=== PATIENT | female | born 1965 | race Caucasian/White ===

== ENCOUNTER 2017-02-26 09:07 | Day surgery (SDC) | payer BC ==
[2017-02-26] MEDS ORDERED: Lactated Ringers 1,000 ML IV SCH (10:00)
[2017-02-26] MEDS ORDERED: Scopolamine 1.5 MG Transdermal Patch TOP ONE (10:02)
[2017-02-26] MEDS ORDERED: Aloe Vera/Sodium Chloride Gel 14.1 GM Tube ONE (10:35)
[2017-02-26] MEDS ORDERED: EPINEPHrine 1:1000 1 MG/ML SDV ONE (10:36)
[2017-02-26] MEDS ORDERED: Lidocaine 2% 5 ML SDV ONE ×2 (10:36→11:32)
[2017-02-26] MEDS ORDERED: Oxymetazoline 0.05% Nasal Spray 15 ML Bottle ONE (10:37)
[2017-02-26] MEDS ORDERED: Lidocaine 2% with EPINEPHrine 1:100,000 20 ML MDV ONE (10:37)
[2017-02-26] MEDS ORDERED: Thrombin (Bovine) 5,000 Unit Kit ONE (10:37)
--- NOTE | 2017-02-26 11:12 | PCM.PREANE ---
Preanesthetic Assessment - Anesthesia/Transfusion/Family Hx Anesthesia History: Prior Anesthesia Without Reaction (slow wakeup in prior surgeries) Other Type of Anesthesia Reaction Comment: pt states she has problems with nausea post anesthesia Family History of Anesthesia Reaction: No Transfusion History: No Prior Transfusion(s) - Review of Systems General: No Symptoms Pulmonary: No Symptoms Cardiovascular: No Symptoms Gastrointestinal: Other (uses antacid for GERD) Neurological: Headache (sinus vs. migraine like) Other: Reports: Sinus Problem (see HPI/surgical plan) - Physical Assessment O2 Sat by Pulse Oximetry: 96 Respiratory Rate: 16 Vital Signs: Last Vital Signs Temp 97.5 F 02/26/17 09:30 Pulse 61 02/26/17 09:30 Resp 16 02/26/17 09:30 BP 127/82 02/26/17 09:30 Pulse Ox 96 02/26/17 09:30 Height: 5 ft 4 in Weight: 224 lb ASA Class: 2 Mental Status: Alert & Oriented x3 Airway Class: Mallampati = 1 Dentition: Reports: Dentures (upper ) Thyro-Mental Finger Breadths: 3 Mouth Opening Finger Breadths: 3 ROM/Head Extension: Full Lungs: Clear to auscultation, Normal respiratory effort Cardiovascular: Regular Rate, Regular Rhythm - Allergies Allergies/Adverse Reactions: Allergies Allergy/AdvReac Type Severity Reaction Status Date / Time amoxicillin trihydrate Allergy Headache Verified 12/27/15 14:38 [From Augmentin] codeine Allergy Headache Verified 12/27/15 14:38 potassium clavulanate Allergy Headache Verified 12/27/15 14:38 [From Augmentin] - Blood Blood Available: No Product(s) Available: None - Anesthesia Plan Free Text/Narrative:: present with interview and exam. 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: Reports: Musculoskeletal History: Reports: Other (see below) Other Musculoskeletal History: chronic neck pain Neurological History: Reports: Migraines Psychiatric History: Reports: Anxiety Endocrine/Metabolic History: Reports: Obesity/BMI 30+ - Infectious Disease History Infectious Disease History: Reports: Chicken pox Other Infectious Disease History: childhood - Past Surgical History Head Surgeries/Procedures: Reports: None HEENT Surgical History: Reports: Adenoidectomy, Naso-sinus surgery, Tonsillectomy GI Surgical History: Reports: Appendectomy Female Surgical History: Reports: section, D&C, Hysterectomy, Tubal ligation Other Female Surgeries/Procedures: D&C x3, c/section x2, breast reduction, tubal ligation, hysterectomy with appy Dermatological Surgical History: Reports: Skin graft - SUBSTANCE USE Smoking Status *Q: Never Smoker Second Hand Smoke Exposure: No Recreational Drug Use History: No - HOME MEDS Home Medications: Home Meds Escitalopram [Lexapro] 10 mg PO DAILY 12/27/15 [History] Gabapentin [Neurontin] 600 mg PO BEDTIME 12/27/15 [History] Pantoprazole Sodium [Protonix] 40 mg PO DAILY 12/27/15 [History] Rizatriptan [Maxalt] 10 mg PO ASDIRECTED PRN 12/27/15 [History] Cetirizine HCl [Zyrtec] 10 mg PO DAILY 02/24/17 [History] Diclofenac Sodium [Voltaren] 50 mg PO TID PRN 02/24/17 [History] - CURRENT (IN HOUSE) MEDS Current Meds: Current Medications Lactated Ringer's (Ringers, Lactated) 1,000 mls @ 100 mls/hr IV ASDIRECTED [place] Last Admin: 02/26/17 09:30 Dose: 100 mls/hr Discontinued Medications Epinephrine HCl (Adrenalin 1:1000) Confirm Administered Dose 3 mg .ROUTE .STK- MED ONE Stop: 02/26/17 10:37 Lidocaine (Xylocaine-Mpf 2%) Confirm Administered Dose 10 ml .ROUTE .STK-MED ONE Stop: 02/26/17 10:37 Lidocaine HCl (Xylocaine-Mpf 1%) Confirm Administered Dose 10 ml .ROUTE .STK- MED ONE Stop: 02/26/17 10:37 Lidocaine/Epinephrine (Xylocaine 2% With Epinephrine 1:100,000) Confirm Administered Dose 20 ml .ROUTE .STK-MED ONE Stop: 02/26/17 10:38 Oxymetazoline HCl (Afrin Original 0.05% Nasal Temperance) Confirm Administered Dose 30 ml .ROUTE .STK-MED ONE Stop: 02/26/17 10:38 Scopolamine (Transderm-Scop) 1.5 mg TOP ONETIME ONE Stop: 02/26/17 10:03 Last Admin: 02/26/17 10:33 Dose: 1.5 mg Sodium Chloride (Sarita Saline Nasal Gel) Confirm Administered Dose 14.1 gm .ROUTE .STK-MED ONE Stop: 02/26/17 10:36 Thrombin (Thrombin-Jmi) Confirm Administered Dose 5,000 unit .ROUTE .STK-MED ONE Stop: 02/26/17 10:38 Preanesthetic Assessment - ANESTHESIA/TRANSFUSION/FAMILY HX Other Type of Anesthesia Reaction Comment: pt states she has problems with nausea post anesthesia Family History of Anesthesia Reaction: No - PHYSICAL ASSESSMENT O2 Sat by Pulse Oximetry: 96 RR: 16 Vital Signs: Last Vital Signs Temp 97.5 F 02/26/17 09:30 Pulse 61 02/26/17 09:30 Resp 16 02/26/17 09:30 BP 127/82 02/26/17 09:30 Pulse Ox 96 02/26/17 09:30 Height: 5 ft 4 in Weight: 224 lb - ALLERGIES Allergies/Adverse Reactions: Allergies Allergy/AdvReac Type Severity Reaction Status Date / Time amoxicillin trihydrate Allergy Headache Verified 12/27/15 14:38 [From Augmentin] codeine Allergy Headache Verified 12/27/15 14:38 potassium clavulanate Allergy Headache Verified 12/27/15 14:38 [From Augmentin]
[2017-02-26] MEDS ORDERED: fentaNYL 100 MCG/2 ML SDV ONE (11:28)
[2017-02-26] MEDS ORDERED: Propofol 200 MG/20 ML SDV ONE ×2 (11:28→13:18)
[2017-02-26] MEDS ORDERED: Midazolam 1 MG/ML 2 ML SDV ONE (11:29)
--- NOTE | 2017-02-26 11:30 | PCM.HPR ---
H & P Addendum review - H & P Addendum Review Date of Original H & P: 01/30/17 Date Reviewed: 02/26/17 Time Reviewed: 11:45 Patient was examined: No Changes
[2017-02-26] MEDS ORDERED: Dexamethasone 4 MG/ML 5 ML MDV ONE ×2 (11:32→13:50)
[2017-02-26] MEDS ORDERED: Rocuronium 10 MG/ML 10 ML Syringe ONE (11:32)
[2017-02-26] MEDS ORDERED: diphenhydrAMINE 50 MG/ML SDV ONE (11:32)
[2017-02-26] MEDS ORDERED: Neostigmine Methylsulfate 1 MG/ML 5 ML Syringe ONE (11:32)
[2017-02-26] MEDS ORDERED: Ondansetron 4 MG/2 ML SDV ONE (11:32)
[2017-02-26] MEDS ORDERED: Remifentanil 1 MG Vial ONE (11:33)
[2017-02-26] MEDS ORDERED: Mineral Oil/Petrolatum Ophth Oint 3.5 GM Tube ONE (11:36)
[2017-02-26] MEDS ORDERED: fentaNYL 100 MCG/2 ML SDV IVPUSH PRN (12:57)
[2017-02-26] MEDS ORDERED: Betamethasone Acetate/Betamethasone Sod Phosphate 30 MG/5 ML MDV ONE (13:50)
[2017-02-26] MEDS ORDERED: Dexamethasone/Tobramycin 0.1-0.3% Ophth Oint 3.5 GM Tube ONE (13:50)
--- NOTE | 2017-02-26 15:58 | PCM.POSTAN ---
POST ANESTHESIA ASSESSMENT - MENTAL STATUS Mental Status: alert, oriented - VITAL SIGNS Pulse Rate: 94 SaO2: 99 Resp Rate: 14 Blood Pressure: 136/68 - RESPIRATORY Respiratory Status: respiratory rate WNL, airway patent, O2 saturation stable, supplemental oxygen (humidified face tent) - CARDIOVASCULAR CV Status: pulse rate WNL, blood pressure stable - GASTROINTESTINAL GI Status: no symptoms - PAIN Pain Score: 0 - POST OP HYDRATION Hydration Status: adequate & stable - OBSERVATIONS Free Text/Narrative:: Dry nose bandage and comfortable.
[2017-02-26] MEDS ORDERED: Acetaminophen 325 MG Tab PO PRN (16:18)
[2017-02-26] MEDS ORDERED: Ibuprofen 400 MG Tab PO PRN (16:19)
--- NOTE | 2017-02-26 17:27 | PCM.OPNOTE ---
- General Post-Op/Procedure Note Date of Surgery/Procedure: 02/26/17 Condition: Good Free Text/Narrative:: Intake & Output 02/26/17 02/26/17 02/26/17 06:59 14:59 22:59 Intake Total 1800 Balance 1800 Pre operative diagnosis: Nasal obstruction, recurrent acute on chronic sinusitis , deviated nasal septum, ahsan inferior turbinate hypertrophy, ahsan maxillary and ethmoid sinusitis. Post operative diagnosis: As above + bilateral nasal adhesions Procedure: Coblation reducion of bilateral inferior turbinates [ CPT 04910 (50)] , Nasal septoplasty [ 89133 ], division of adhesions between middle turbinate and lateral nasal wall bilateral [, Bilateral Revision Endoscopic sinus surgery - middle meatal antrotomy [ CPT 61789 (50)], uncinectomy, Sinus Navigation [ 43954] Surgeon: Laney Chance MD Anesthesia: GA Anesthesiologist: Dr Morrow Date of procedure: 02/26/2017 Indications: Dorothy was seen in my clinic with above symptoms. A CT scan of the paranasal sinuses showed bilateral maxillary sinus disease with very patchy opacification ethmoid sinuses bilaterally with deviated nasal septum. Remaining anatomy seemed fairly normal. An informed consent was obtained and risks and benefits of surgery were discussed in detail and she was listed for the procedure. Findings: Right - anterior deviated nasal septum; left mid- high deviated nasal septum in the region of middle turbinate; left sided spur along the floor. Adhesions between bilateral middle turbinate and lateral nasal wall-very dense and osseous on the left side; mucosal on the right side. Bilateral maxillary sinus ostia severely stenosed - 2 pinpoint openings on the left, approximately 2 -3 mm openings X 2 on the right with intervening scar tissue. Residual uncinate process- almost complete on the right side and 2/3 on the left side. These changes are likely from previous surgery. The adhesions were divided, uncinectomy was performed and bilateral revision middle meatal antrostomy was performed. Operation details: An informed consent was obtained. A time out was performed and the patient was brought back to the operating room. Gen. anesthesia was administered with an endotracheal tube. Bilateral eyes were left exposed and lubricating ointment was inserted into the eyes. A 0 degree rigid nasal endoscope was used to examine bilateral nasal cavities and photo documentation was obtained. The left inferior turbinate was addressed first. 1% lidocaine was injected into the inferior turbinate - 3 mls were used. The nasal cavity was packed with Afrin soaked pledget. After adequte period of decongestion the pledget was removed. A reflex 45 coblation wand with tip dipped in AYR Gel was used at setting of 6 :2 for Coblation and coagulation respectively. The point of entry was coagulated and wand was inserted till the third marking. Three way were created in the single channel. The inferior turbinate was visibly shrunk. Similar procedure was repeated on the right side - 3ml of lidocaine was used; there was visible reduction in size of turbinate subsequent to coblation. Bilateral nasal cavities were then packed with oxymetazoline 0.05% soaked cottonoid pledgets. After an appropriate period of decongestion the pledgets were removed. Nasal septum was infiltrated with 2% lidocaine 1: 100, 000 epinephrine in a standard fashion-a total of 6 mls was used. The pledgets were then removed. A right [place] incision was performed. A right sided mucoperichondrial flap was elevated-dissection was commenced with 2 mm osteotome and further carried out with combination of felicita and [place] elevators. Posteriorly the flap was continued as a muco periosteal flap. A posterior chondrotomy was performed. left-sided mucoperiosteal flap was elevated. Floor of the septal cartilage was dissected off the maxillary crest elevating thin strip of mucoperichondrial flap inferiorly on the contralateral- left side. A samson scissor was used and the perpendicular plate of the ethmoid was removed. The vomer along with left-sided spur was also removed. There was a small tear on the left side posteriorly. The thin inferior strip of cartilage was removed using a septal knife. Also approximately 2 mm thin posterior vertical strip of cartilage was removed. Subsequent to this the nasal septum was positioned towards the midline. Flap was intact on the right side. Flap incision was sutured with 4-0 plain gut. Mattress sutures were also performed. The [employer] navigation system was set up and the Tracker was fixed to the fore head as per protocol and successful registration was obtained. The left middle turbinate axilla, the head of middle turbinate and adhesions were infiltrated with 2% lidocaine and 1 in 100,000 epinephrine-a total of 1.5 ml was used. Similar injections were performed on the right side. A cottonoid pledget soaked in 1: 1000 epinephrine each was placed in the middle meatus, draping over the middle turbinate axilla - this was done bilaterally. The left side was addressed first. After appropriate period of decongestion the cottonoid pledgets were removed. A 0 endoscope was used and the adhesions between MT and lateral wall were divided with a FESS scissor - these were very dense and osseous and hence a very thin lateral aspect of the middle turbinate was dissected off leaving it attached to the lateral wall. A microdebrider was then used to gently shave off the residual part of the middle turbinate from the lateral wall. Subsequent to this the residual part of uncinate process was removed using a microdebrider up to the agger nasi cell. A 30 nasal endoscope was then used and 2 pinpoint openings were identified in the region of natural ostia of maxillary sinus - further defined with a navigated probe and 90 suction. With a combination Lars-Cut forceps and backbiting forceps these 2 opening combined and further enlarged using the microdebrider. The maxillary sinus cavity was inspected and irrigated with saline. Attention was then directed towards the right side. A 0 endoscope was used the cottonoid pledgets were removed. The adhesions were resected with a sickle knife - mucosal on this side. The uncinate process was identified - almost entirely intact except for a small posterior part. This was medialized with the help of a probe. Further dissection was carried out with a microdebrider up to agger nasi cell superiorly and back to the posterior inferior attachment. A 30 nasal endoscope was then used and the 2 maxillary sinus openings were identified. These were further defined with the help of all irrigated probed and 90 suction. With a combination of straight through cut forceps, backbiting forceps these 2 openings were combined and then further enlarged using the microdebrider. The maxillary sinus cavity was inspected and irrigated with saline. A medialization suture with 4.0 plain gut was performed securing the middle turbinate with the nasal septum. The nasal cavity was thoroughly inspected, irrigated and no loose bone chips were identified. At all times the position of instruments was confirmed with [employer] navigation and a combination of straight, 90 and 70 degrees suctions and ostium seekers - all navigated were used as required at appropriate times to assist with identifying landmarks and dissection. Post nasal space was suctioned clear of blood bilaterally and per orally. [place] dressing was inserted bilaterally inthe middle meatus and moistened with Betamethasone solution - 1.5 mls on each side. Bacitracin ointment was applied to the inferior turbinates bilaterally. A nasal bollster was applied. This conscluded the procedure and the patient was turned over to the anesthesiologist for recovery. Specimens: none IV fluids: 1500 ml Blood loss: 15 ml Blood products: nil Disposition: PACU for recovery Follow up: In 2 days.
--- NOTE | 2017-02-26 17:50 | PCM48HPAN ---
Post Anesthesia Note - EVALUATION WITHIN 48HRS OF ANESTHETIC Vital Signs in Normal Range: Yes Patient Participated in Evaluation: Yes Respiratory Function Stable: Yes Airway Patent: Yes Cardiovascular Function Stable: Yes Hydration Status Stable: Yes Pain Control Satisfactory: Yes ("feels like i have been hit by a baseball bat") Nausea and Vomiting Control Satisfactory: Yes Mental Status Recovered: Yes - COMMENTS/OBSERVATIONS Free Text/Narrative:: has been to pharmacy for home meds. He will escort her home in the next hours.
[2017-02-26 18:38] VITALS: BP 125/63
== END 2017-02-26 18:40 | disposition home or self-care (01) ==
LOC: MW.SDS 09:07
PROVIDERS: ATTEND Otolaryngology
PROC: 0NSBXZZ Reposition Nasal Bone, External Approach (ICD-10-PCS; principal; 2017-02-26)
PROC: 09SM0ZZ Reposition Nasal Septum, Open Approach (ICD-10-PCS; 2017-02-26)
PROC: 8E09XBZ Computer Assisted Procedure of Head and Neck Region (ICD-10-PCS; 2017-02-26)
PROC: 099R4ZZ Drainage of Left Maxillary Sinus, Percutaneous Endoscopic Approach (ICD-10-PCS; 2017-02-26)
PROC: 099Q4ZZ Drainage of Right Maxillary Sinus, Percutaneous Endoscopic Approach (ICD-10-PCS; 2017-02-26)
DX: J34.2 Deviated nasal septum (principal); J32.0 Chronic maxillary sinusitis; J32.2 Chronic ethmoidal sinusitis; J34.3 Hypertrophy of nasal turbinates; K21.9 Gastro-esophageal reflux disease without esophagitis; F41.9 Anxiety disorder, unspecified; E66.9 Obesity, unspecified; Z88.0 Allergy status to penicillin; Z88.5 Allergy status to narcotic agent; Z98.51 Tubal ligation status; Z90.49 Acquired absence of other specified parts of digestive tract; Z90.710 Acquired absence of both cervix and uterus; Z90.89 Acquired absence of other organs; Z98.890 Other specified postprocedural states; Z79.899 Other long term (current) drug therapy
CPT/HCPCS: 30520; 30802; 31256; 61782; A9270; J0171; J0702; J1100; J1200; J2250; J2405; J3010; J7120; 00160; J2704

== ENCOUNTER → 2017-03-14 | Outpatient (CLI) | payer BC | LOC: MW.CHENT 14:21 | PROVIDERS: ATTEND Otolaryngology | DX: J32.9 Chronic sinusitis, unspecified (principal) | CPT/HCPCS: 87070; 87075; 87205 ==